=== PATIENT | male | born 1975 | race African-American/Black ===

== ENCOUNTER 2025-02-22 13:50 | Emergency (ER) | payer MEDICAID, SELFPAY ==
--- NOTE | ~2025-02-22 | XR_ITS ---
CLINICAL HISTORY: low back pain 3 views lumbar spine Comparison: None provided Findings: Normal alignment. No acute displaced fractures or dislocation. No significant degenerative change. Mild facet arthropathy at L5-S1. IMPRESSION: No acute displaced fracture of the lumbar spine. The vertebral body heights are maintained. No high-grade degenerative changes. This document has been electronically signed by: Maren Cannon MD on 02/22/2025 14:38:51
[2025-02-22 13:55] VITALS: BP 138/68; PULSE 70; RESP 18; TEMP 36.6; O2SAT 98; BMI 23.9
--- NOTE | 2025-02-22 13:56 | ED_ITS ---
HPI - Back Pain/Injury General Chief Complaint: Back Pain/Injury Stated Complaint: pinched nerve on lower back severe pain Time Seen by Provider: 02/22/25 14:40 Source: patient Mode of arrival: ambulatory Limitations: no limitations History of Present Illness ED Provider: AMARILIS GUPTA PA-C HPI Narrative: 50-year-old male presents to the ED today for evaluation of low back pain which began yesterday after lifting a heavy object. He trialed diclofenac at home with minimal improvement. His last dose was around 0800 this morning. Pain is localized across his lower back. Does not radiate down his lower extremities. Denies history of spinal surgery or IV drug use. No blunt injury or trauma. Denies fever, chills, neck pain, bowel or bladder incontinence or retention, numbness/tingling/weakness in the lower extremities, dysuria, hematuria, saddle anesthesia. Related Data Previous Rx's ?Medication ?Instructions ?Recorded cyclobenzaprine 5 mg tablet 5 mg PO TID PRN muscle katherine n 3 days 02/22/25 #9 tabs lidocaine 5 % topical patch See Rx Instructions topica l 02/22/25 .COMPLEX #15 ea Allergies Allergy/AdvReac Type Severity Reaction Status Date / Time No Known Allergies Allergy Verified 02/22/25 13:56 Review of Systems Review of Systems: Constitutional: No fever, chills, fatigue, night sweats, weight changes ENT/Mouth: No ear pain, hearing loss, nasal congestion, sinus pain, rhinorrhea, sore throat Eyes: No eye pain, swelling, redness, vision changes, discharge Cardio: No chest pain, palpitations, LUA, orthopnea, peripheral edema Pulm: No SOB, cough, sputum, wheezing, dyspnea, hemoptysis GI: No nausea, vomiting, hematemesis, abdominal pain, diarrhea, constipation, hematochezia, melena : No irregular bleeding, dysuria, frequency, urgency, hesitancy, hematuria, flank pain, urinary flow changes, urinary incontinence or retention MSK: +back pain, No neck pain, joint pain, myalgias Skin: No lesions, rashes Neuro: No weakness, numbness, paresthesias, LOC, dizziness, headache All other systems reviewed and are negative. [facility] Past Medical History Attestation statement: The following information was validated with the patient. Source: old records reviewed and nursing notes reviewed Social History Social History Advance Directives: No Advance Directives Information Provided: No Do you have a plan to hurt others: No Plan Physical Exam Vital Signs: Vital Signs: Last Vital Signs Temp 98 F 02/22/25 15:07 Pulse 70 02/22/25 15:07 Resp 18 02/22/25 15:07 BP 138/68 02/22/25 15:07 Pulse Ox 98 02/22/25 15:07 O2 Del Method Room Air 02/22/25 15:07 BMI result Body Mass Index 23.9 Vital signs stable, afebrile Const: General: cooperative, healthy appearing, comfortable, no acute distress, alert, awake and Physically active Orientation/consciousness: patient oriented x3 HEENT: Head: Yes normal to inspection, Yes normocephalic and Yes atraumatic Eyes: General: appearance normal, both eyes and all related structures Pupils: Equal, round and reactive pupils present EOM: EOMs intact bilaterally Neck: Other: + no cervical midline spinous tenderness or step-off deformity. Neck: Yes normal visual inspection, Yes full ROM and Yes no meningeal signs Resp: Effort & Inspection: normal respiratory effort Auscultation: clear to auscultation bilaterally Cardio: Rate: regular rate Rhythm: regular rhythm GI: Inspection: Yes normal to inspection Palpation (GI): Soft to palpation and nontender : General: Yes no CVA tenderness Back/Spine/Pelvis: Other: No midline spinous tenderness or step-off deformity. There is bilateral lumbar paraspinal muscle tenderness to palpation. Back: no CVA tenderness Neuro: Other: Strength 5/5 intact throughout.? No saddle anesthesia.? Sensation intact to light touch.? Neurovascular intact distally.? General: patient oriented x3, gait normal and no meningeal signs Cranial nerves: Yes Equal, round and reactive pupils present Gait exam (Neuro): Normal gait present Course Course Course Narrative: X-rays unremarkable. Consistent with lumbar strain after lifting heavy object. Medicated with Toradol and lidocaine patch in ED. meds sent to pharmacy. Patient has remained stable throughout ED visit today. Discussed worrisome signs and symptoms and when to return to the ED. All questions answered at this time. Patient is agreeable with disposition and stable for discharge. Medications Administered Discontinued Medications Generic Name Dose Route Start Last Admin Trade Name Mary PRN Reason Stop Dose Admin Ketorolac Tromethamine 30 mg 02/22/25 14:45 02/22/25 15:02 Ketorolac Tromethamine 30 Mg/Ml Vial IM 02/22/25 14:46 30 mg ONCE ONE Administration Lidocaine 1 patch 02/22/25 14:45 02/22/25 15:02 Lidocaine 4 % Patch Adh..Patch TRANSDERMA 02/22/25 14:46 1 patch ONCE ONE Administration Protocol Medical Decision Making Medical Decision Making MDM Narrative: 50-year-old male presents to the ED today for evaluation of low back pain which began yesterday after lifting a heavy object. Vital signs stable, afebrile. He is well-appearing and in no acute distress. On exam, there is no midline spinous tenderness or step-off deformity. There is bilateral lumbar paraspinal muscle tenderness to palpation. No red flag back pain symptoms. Concern for MSK sprain/strain, muscle spasm, fracture, subluxation, disc herniation, sciatica. Unlikely cord compression, cauda equina, Guillain-[place], epidural abscess. Plan for imaging, pain control and disposition. Differential Diagnosis Differential Diagnoses: The differential diagnosis associated with the presentation includes as above Admission/Observation Not indicated. Independent Interpretation I performed an independent interpretation of an: Plain X-Ray Interpretation: xr lumbar spine without fracture Radiology Impression Discussion of test interpretation with radiology: I have reviewed the radiologist's reading. Radiologist Impression: Procedure(s): XR lumbar spine 2-3V Accession Number(s): [id number] cc: Physician,None ; Amarilis Gupta~ Reason for Exam: low back pain CLINICAL HISTORY: low back pain 3 views lumbar spine Comparison: None provided Findings: Normal alignment. No acute displaced fractures or dislocation. No significant degenerative change. Mild facet arthropathy at L5-S1. IMPRESSION: No acute displaced fracture of the lumbar spine. The vertebral body heights are maintained. No high-grade degenerative changes. This document has been electronically signed by: Maren Cannon MD on 02/22/2025 14:38:51 External Record Review External record reviewed: Inpatient record Prescription Management I considered prescription management with: Pain Medication and Other (Muscle relaxer) Social Determinants Patient?s care significantly limited by Social Determinants of Health including: Other Social Determinant of Health Critical Care Time Critical Care Time Critical Care Time: No Discharge Plan Discharge Clinical Impression: Strain of lumbar region Patient Disposition: Home, Self-Care Instructions: Muscle Strain (ED) Additional Instructions: You were evaluated in the Emergency Department today for your back pain.? Your evaluation did not show signs of medical conditions requiring emergent intervention at this time. Avoid bending, lifting, or twisting. Use ice several times per day for 20 minutes at a time for the next 48 hours and then change to heat. I recommend you take 600mg ibuprofen every 6 hours or tylenol 650mg every 6 hours as needed for pain. If needed, you can alternate these medications so that you take one medication every 3 hours. For example, at noon take ibuprofen, then at 3pm take tylenol, then at 6pm take ibuprofen. Flexeril is a muscle relaxer. Take this at night as it makes you drowsy. Do not drive, drink alcohol, or operate machinery while taking it. Lidoderm patches are numbing patches. Apply to painful areas. Please schedule an appointment for follow-up with your primary care provider this week for further evaluation of your symptoms. Return to the Emergency Department if you experience worsening back pain, difficulty walking, fevers, numbness, tingling, incontinence, or any other concerning symptoms. In the case of an emergency call 911. Prescriptions: New lidocaine 5 % adhesive patch,medicated See Rx Instructions .ROUTE .COMPLEX Qty: 15 0RF Rx Instructions: leave on most painful area for up to 12 hrs cyclobenzaprine 5 mg tablet 5 mg PO TID PRN (Reason: muscle pain) 3 Days Qty: 9 0RF Referrals: Physician,None [Physician, Medical] Interventions: ED Discharge Assessment Last Done: 02/22/25 15:07 Discharge Date/Time: 02/22/25 15:08 Print Language: Welsh
--- OUTSIDE RECORDS SUMMARY | 2025-02-22 14:55 | XMS_ITS | Clinical Summary ---
Author Organization [employer] [facility] Address [address] [place] [address] [address] [place] [address] Care Team Providers Care Scientific Photographer Name Role Phone Unavailable Primary Care Provider Unavailabl e Allergies No known active allergies Medications ketoconazole (NIZOral) 2 % creamIndicatio ns:Tinea cruris Apply topically Once per day. 15 g 2 08/06/2023 10:22 AM EDT 07/21/19 24 025 Discontinued acetaminophen (Tylenol 8 Hour) 650 MG ER tablet Take 1 tablet (650 mg) by mouth every 8 (eight) hours if needed for mild pain. Do not crush, chew, or split. 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 10/12/2024 Gingival bleeding 10/12/2024 Subgingival dental calculus 10/12/2024 Acute gingival inflammation 10/12/2024 Localized aggressive severe periodontitis 2024 Dental caries 07/19/2024 Encounters Date Type Department Care Team Description 02/13/2025 3:00 PM EST Office Visit [facility] [address] [place] [address] Reyna Ramirez, LATESHAS Dental caries (Primary Dx) 01/23/2025 8:00 AM EST Office Visit [facility] [address] [place] [address] Johana Lynn Advanced periodontitis (Primary Dx); Dental plaque 01/23/2025 Telephone [facility] [address] [place], [place] [id number] Seng Waller MD telephone call from Last 3 Months Immunizations Immunization Administration Dates Next Due Tdap 07/21/2023 Family History Medical History Relation Name Comments Diabetes Father Hypertension Mother Relation Name Status Comments Father Mother Social History Tobacco Use Types Packs/Day Years Used Date Smoking Tobacco: Never Passive Smoke Exposure: Never Smokeless Tobacco: Never Tobacco Cessation:Counseling Given: Not Answered Alcohol Use Standard Drinks/Week Comments Never 0 (1 standard drink = 0.6 oz pur e alcohol) Depression Answer Date Recorded Patient Health Questionnaire-2 Score 0 07/21/2023 Sex and Gender Information Value Date Recorded Sex Assigned at Male 07/21/2023 12:32 PM EDT Legal Sex Male 3:01 PM EDT Gender Identity Male 07/21/2023 12:32 PM EDT Sexual Orientation Straight 07/21/2023 12 :32 PM EDT Last Filed Vital Signs Vital Sign Reading Time Taken Comments Blood Pressure 110/78 02/13/2025 3:09 PM EST Pulse 76 10/19/2024 10:51 AM EDT Temperature 36.4 C (97.6 F) 08/09/2023 10:00 AM EDT Respiratory Rate 18 08/09/2023 10:00 AM EDT Oxygen Saturation 98% 08/09/2023 10:00 AM EDT Inhaled Oxygen Concentration - - Weight 65.4 kg (144 lb 3.2 oz) 08/09/2023 10:00 AM EDT Height 155.4 cm (5' 1.2 ) 08/09/2023 10:00 AM ED T Body Mass Index 27.07 08/09/2023 10:00 AM EDT Plan of Treatment Upcoming Encounters Date Type Department Care Team (Late st Contact Info) Description 02/28/2025 1:30 PM EST Office Visit [facility] [address] [place] [address] Reyna Ramirez DDS [address] [place] [address] 03/30/2025 2:45 PM EST Office Visit [facility] [address] [place] [address] Micaela Fuentes NP [address] [place] [address] 07/26/2025 8:00 AM EDT Office Visit [facility] [address] [place] [address] PickardLuz Elena Health Maintenance Due Date Last Done Comments CT Colonography 1977 Colonoscopy 1977 Colorectal Cancer Screening 1977 FIT DNA/Cologuard 1977 FIT 1977 FOBT 1977 SDOH Screening 1977 Sigmoidoscopy 1977 Disability Screening 1977 Alcohol/Substance Use Screening 1989 Family Planning (PISQ) 01/21/1992 Hepatitis B Vaccines (1 of 3 - 19+ 3-dose series) 01/21/1996 Depression Screening 07/20/2024 07/21/2023, 07/21/2023 COVID-19 Vaccine (1 - 2024-2 6 season) 2024 Influenza Vaccine (#1) 2024 Dental Oral Exam 01/12/2025 07/11/2024 Dental Prophylaxis 07/24/2025 01/23/2025, 07/11/2024 Dental X-Ray: Bitewings 10/13/2025 10/13/19, 07/11/2024, 07/10/2024 Tobacco Screening 02/13/2026 02/13/2025 Zoster Vaccines (1 of 2) 2027 Dental X-Ray: Full Mouth 07/13/2027 07/11/2024 Lipid Panel 07/20/2028 07/21/2023 DTaP/Tdap/Td Vaccines (2 - T d or Tdap) 07/20/2033 07/21/2023 RSV Patients and Patients Aged 60 years or older (1 - 1-dose 75+ series) 01/21/2052 HIV Screening Completed 07/21/2023 Hepatitis C Screening Completed 07/21/2023 HIB Vaccines Aged Out No longer eligi ble based on patient's age to complete this topic HPV Vaccines Aged Out No longer eligi ble based on patient's age to complete this topic Hepatitis A Vaccines Aged Out No long er eligible based on patient's age to complete this topic IPV Vaccines Aged Out No longer eligi ble based on patient's age to complete this topic Meningococcal B Vaccine Aged Out No l onger eligible based on patient's age to complete this topic Meningococcal Vaccine Aged Out No derik blake eligible based on patient's age to complete this topic Pneumococcal Vaccine: Pediatrics (0 to 5 Years) and At-Risk Patients (6 to 49) Years Aged Out No longer eligible b ased on patient's age to complete this topic RSV under 20 months Aged Out No longe r eligible based on patient's age to complete this topic Rotavirus Vaccines Aged Out No longer eligible based on patient's age to complete this topic Procedures Procedure Name Priority Date/Time Associated Diagnosis Comments CASE PRESENTATION, DETAILED AND EXTENSIVE TREATMENT PLANNING Routine 02/13/2025 3:00 PM EST Dental caries 31 O RESIN-BASED COMPOSITE - 1 SURF, POSTERIOR Routine 02/13/2025 3:00 PM EST Dental caries CASE PRESENTATION, DETAILED AND EXTENSIVE TREATMENT PLANNING Routine 01/23/2025 8:00 AM EST Advanced periodontitis Dental plaque ORAL HYGIENE INSTRUCTIONS Routine 01/23/2025 8:00 AM EST Advanced periodontitis Dental plaque PROPHYLAXIS - ADULT Routine 01/23/2025 8 :00 AM EST Advanced periodontitis Dental plaque BITEWINGS - 2 RADIOGRAPHIC IMAGES Routine 10/12/2024 11:00 AM EDT Acute gingival inflammation Localized aggressive severe periodontitis Subgingival dental calculus Gingival bleeding Stage 4 grade C localized periodontitis per AAP/EFP 2017 classification INTRAORAL - COMPLETE SERIES OF RADIOGRAPHIC IMAGES Routine 07/11/2024 8:00 AM EDT Advanced periodontitis Subgingival dental calculus Acute gingival inflammation Gingival bleeding COMPREHENSIVE ORAL EVALUATION - NEW OR ESTABLISHED PATIENT Routine 07/11/2024 8:00 AM EDT Advanced periodontitis Subgingival dental calculus Acute gingival inflammation Gingival bleeding Localized aggressive severe periodontitis Encounter for dental examination Dental calculus HEPATITIS C AB W/REFL TO HCV RNA, QN, PCR Routine 07/21/2023 1:49 PM EDT Screening examination for STI HIV 1/2 ANTIGEN/ANTIBODY, FOURTH GENERATION W/RFL Routine 07/21/2023 1:49 PM EDT Screening examination for STI LIPID PANEL, STANDARD Routine 07/21/2023 1:49 PM EDT Annual visit for general adult medical examination with abnormal findings from Last 3 Months or Most Recently Relevant to Health Maintenance Results * Hepatitis C Antibody with Reflex to HCV, RNA, Quantitative, Real-Time PCR (07/21/2023 1:49 PM EDT) Hepatitis C Antibody NON-REACT WILTON NON-REACT WILTON [employer] [facility] Comment: HCV antibody was non-reactive. There is no laboratory evidence of HCV infection. In most cases, no further action is required. However, if recent HCV exposure is suspected, a test for HCV RNA (test code 72827) is suggested. For additional information please refer to http://[employer]/faq/LYB90q6 (This link is being provided for informational/ educational purposes only.) Blood Venous blood specimen / Unknown 07/21/2023 1:49 PM EDT 07/22/2023 6:48 AM EDT Narrative [facility] - 07/22/2023 1:12 PM EDT FASTING:UNKNOWN FASTING: UNKNOWN Brianna Garrido [facility] LAB BLOOD ORDERABLES Final Re sult [facility] [address], [place] [address] [employer] [facility] [address] [place] [address] * HIV-1/2 Antigen and Antibodies, Fourth Generation, with Reflexes (07/21/2023 1:49 PM EDT) Pathologist [facility] HIV Antigen/Antibody, 4th Generation NON-REAC TIVE NON-REAC TIVE [employer] [facility] [facility] Comment: HIV-1 antigen and HIV-1/HIV-2 antibodies were not detected. There is no laboratory evidence of HIV infection. PLEASE NOTE: This information has been disclosed to you from records whose confidentiality may be protected by state law. If your state requires such protection, then the state law prohibits you from making any further disclosure of the information without the specific written consent of the person to whom it pertains, or as otherwise permitted by law. A general authorization for the release of medical or other information is NOT sufficient for this purpose. For additional information please refer to http://education.[employer]/faq/PHP829 (This link is being provided for informational/ educational purposes only.) The performance of this assay has not been clinically validated in patients less than 2 years old. Blood Venous blood specimen / Unknown 07/21/2023 1:49 PM EDT 07/22/2023 6:48 AM EDT Narrative [facility] - 07/22/2023 1:12 PM EDT FASTING:UNKNOWN FASTING: UNKNOWN Brianna Garrido [facility] LAB BLOOD ORDERABLES Final Re sult [facility] [place] [address], [place] [address] [employer] [address] [place] [address] * Lipid Panel, Standard (07/21/2023 1:49 PM EDT) [facility] Cholesterol, Total 139 <200 mg/dL [facility] HDL Cholesterol 63 > OR = 40 mg/dL [facility] Triglycerides 44 <150 mg/dL [facility] LDL Cholesterol 63 mg/dL [facility] t [employer] Comment: Reference range: <100 Desirable range <100 mg/dL for primary prevention; <70 mg/dL for patients with CHD or diabetic patients with > or = 2 CHD risk factors. LDL-C is now calculated using the Ben-Sabina calculation, which is a validated novel method providing better accuracy than the Friedewald equation in the estimation of LDL-C. Ben SOLIMAN et al. DEVON. 2013;310(19): 8700-4948 (http://education.[employer]/faq/YLK612) Chol/HDLC Ratio 2.2 <5.0 (calc) [facility] Non-HDL Cholesterol 76 <130 mg/dL [facility] Comment: For patients with diabetes plus 1 major ASCVD risk factor, treating to a non-HDL-C goal of <100 mg/dL (LDL-C of <70 mg/dL) is considered a therapeutic option. Blood Venous blood specimen / Unknown 07/21/2023 1:49 PM EDT 07/22/2023 6:48 AM EDT Narrative [facility] - 07/22/2023 1:12 PM EDT FASTING:UNKNOWN FASTING: UNKNOWN Brianna Garrido [facility] LAB BLOOD ORDERABLES Final Re sult [facility] [address], [place] [address] [employer] [facility] [address] [place] [address] from Last 3 Months or Most Recently Relevant to Health Maintenance Insurance [facility] [place] ST[place] AD[place]
[2025-02-22] MEDS: Lidocaine 4 % Patch ADH..PATCH 1 PATCH TRANSDERMA (15:02)
[2025-02-22 15:07] VITALS: BP 138/68; PULSE 70; RESP 18; TEMP 36.6; O2SAT 98
== END 2025-02-22 15:08 | disposition home or self-care (01) ==
PROVIDERS: Emergency Provider Emergency Medicine
DX: S39.012A Strain of muscle, fascia and tendon of lower back, initial encounter (principal); X50.0XXA Overexertion from strenuous movement or load, initial encounter; X50.1XXA Overexertion from prolonged static or awkward postures, initial encounter; Y93.9 Activity, unspecified; Y92.9 Unspecified place or not applicable; Y99.8 Other external cause status
CPT/HCPCS: 72100; 96372; 99283; 99284; J1885

== ENCOUNTER → 2025-02-22 13:57 | Outpatient (BNV) | payer MEDICAID, SELFPAY | PROVIDERS: Emergency Provider Emergency Medicine; Visit Provider Student in an Organized Health Care Education/Training Program | DX: M54.50 Low back pain, unspecified (principal) | CPT/HCPCS: 72100 ==